=== PATIENT | female | born 1990 | race Two or more races ===

== ENCOUNTER 2025-02-07 00:35 | Emergency (ER) | payer MEDICAID, OTHER ==
[~2025-02-07] VITALS: Ht 154.9 cm; Wt 121.8 kg
--- NOTE | 2025-02-07 00:59 | ED.PDOC ---
CONTROL ELECTRICIAN HPI Comments 34-year-old female who came to ER for abdominal pain. Patient states for the past 4 days she has been having lower abdominal cramping pain, associated with profuse vaginal bleeding with clots. Ibuprofen 800 mg offered no relief of the pain. Persistence of lower abdominal cramping pain and vaginal bleeding prompted patient to come to the ER. Denies any nausea or vomiting. Denies any possibility of . Patient states she had her regular menstrual cycle 2 weeks ago Chief Complaint: Abdominal Pain Time Seen by MD: 00:58 Reviewed Notes: Nurses Notes Allergies: Coded Allergies: No Known Drug Allergy (Verified Allergy, Unknown, 02/07/25) Home Meds Active Scripts Cefdinir (Cefdinir) 300 Mg Cap, 300 MG PO BID for 7 Days, #14 CAP Prov:ALEJANDRO HARRIS MD 02/07/25 Acetaminophen W/ Pamabrom (Midol Caffeine Free 500-25 mg) 1 Tab Tab, 1 TAB PO Q6HP PRN, #60 TAB Prov:ALEJANDRO HARRIS MD 02/07/25 Information Source: Patient Mode of Arrival: Ambulatory Timing: Days Prehospital treatment: None Severity: Moderate Vaginal Discharge: None Bleeding Quality: Clotted Onset Of Mass/Bleeding: Spontaneous Associated Signs and Symptoms: Vaginal Bleeding, Abdominal Pain Past Medical History PAST MEDICAL HISTORY: Denies Surgical History: Denies all surgeries 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 Family History Family History: Reviewed,noncontributory to illness Social History Smoker: Non-Smoker Alcohol: Denies ETOH Use Drugs: Denies Drug Use Lives In: Home Constitutional: denies: chills, diaphoresis, fatigue, fever, malaise, sweats, w eakness, others EENTM: denies: blurred vision, double vision, ear bleeding, ear discharge, ear drainage, ear pain, ear ringing, eye pain, eye redness, hearing loss, mouth pain, mouth swelling, nasal discharge, nose bleeding, nose congestion, nose pain, photophobia, tearing, throat pain, throat swelling, voice changes, others Respiratory: denies: cough, hemoptysis, orthopnea, SOB at rest, shortness of breath, SOB with excertion, stridor, wheezing, others Cardiovascular: denies: chest pain, dizzy spells, diaphoresis, Dyspnea on exertion, edema, irregular heart beat, left arm pain, lightheadedness, palpitations, PND, syncope, others Gastrointestinal: reports: abdominal pain; denies: abdomen distended, blood streaked bowels, constipated, diarrhea, dysphagia, difficulty swallowing, hematemesis, melena, nausea, poor appetite, poor fluid intake, rectal bleeding, rectal pain, vomiting, others Genitourinary: reports: abnormal vagina bleeding; denies: burning, dyspareunia, dysuria, flank pain, frequency, hematuria, incontinence, pain, , vagina discharge, urgency, others Neurological: denies: dizziness, fainting, headache, left sided numbness, left sided weakness, numbness, paresthesia, pre-existing deficit, right sided numbness, right sided weakness, seizure, speech problems, tingling, tremors, weakness, others Musculoskeletal: denies: back pain, gout, joint pain, joint swelling, muscle pain, muscle stiffness, neck pain, others Integumetry: denies: bruises, change in color, change in hair/nails, dryness, laceration, lesions, lumps, rash, wounds, others Allergic/Immunocompromised: denies: Difficulty Healing, Frequent Infections, Hives, Itching, others Hematologic/Lymphatic: denies: anemia, blood clots, easy bleeding, easy bruising, swollen glands, others Endocrine: denies: excessive hunger, excessive sweating, excessive thirst, excessive urination, flushing, intolerance to cold, intolerance to heat, unexplained weight gain, unexplained weight loss, others Psychiatric: denies: anxiety, bipolar disorder, depression, hopeless, panic disorder, schizophrenia, sleepless, suicidal, others Physical Exam General Appearance: No Apparent Distress, Normal HEENT: Normal ENT Inspection, Pharynx Normal, TMs Normal Neck: Full Range of Motion, Non-Tender, Normal, Normal Inspection Respiratory: Chest Non-Tender, Lungs Clear, No Accessory Muscle Use, No Respiratory Distress, Normal Breath Sounds Cardiovascular: No Edema, No JVD, No Murmur, No Gallop, Normal Peripheral Pulses, Regular Rate/Rhythm Breast Exam: Deferred Gastrointestinal: No Organomegaly, Non Tender, No Pulsatile Mass, Normal Bowel Sounds, Soft Genitalia: Deferred Pelvic: Deferred Rectal: Deferred Extremities: No calf tenderness, Normal capillary refill, Normal inspection, Normal range of motion, Non-tender, No pedal edema Musculoskeletal : Apperance: Normal Neurologic: Alert, storm chaser II-XII nml as Tested, No Motor Deficits, Normal Affect, Normal Mood, No Sensory Deficits Cerebellar Function: Normal Reflexes: Normal Skin: Dry, Normal Color, Warm Lymphatic: No Adenopathy Was a procedure done? Was a procedure done?: No Differential Diagnosis (COST ESTIMATING CLERK) Vaginal Bleeding: - Complete, - Incomplete, Blood Loss Anemia, Dysmenorrhea, Ectopic , Menorrhagia, Menometrorrhagia, PID, UTI, Other X-Ray, Labs, Meds, VS Vital Signs Date Time Temp Pulse Resp B/P (MAP) Pulse Ox O2 Delivery O2 Flow Rate FiO2 02/07/25 08:30 98.3 88 17 128/72 (90) 99 98.3 02/07/25 06:07 98.7 78 20 129/66 (87) 98 98.7 02/07/25 03:44 98.0 78 20 126/75 (92) 93 98.0 02/07/25 00:38 98.3 96 16 136/91 97 98.3 Lab Test 02/07/25 03:25 02/07/25 01:01 Range/Units Urine Color Brown H Yellow Urine Clarity Turbid H Clear Urine pH 5.5 5.0-9.0 Urine Specific Mongo 1.020 1.001-1.035 Urine Protein 1+ H Negative Urine Ketones Trace Negative Urine Blood 3+ H Negative /uL Urine Nitrite Negative Negative Urine Bilirubin Negative Negative Urine Urobilinogen Normal Negative mg/dL Urine Leukocyte Esterase 1+ Negative /uL Urine RBC 3788 0 - 4 /hpf Urine Microscopic WBC 33 H 0-5 /HPF Urine Squamous Epithelial Cells Few <5 /hpf Urine Bacteria Few H None Seen /hpf Urine Mucus Few None Seen Urine Glucose Normal Normal mg/dL Urine Test Negative Negative White Blood Count 10.4 4.4-10.8 10^3/uL Red Blood Count 4.46 4.0-5.20 10^6/uL Hemoglobin 13.2 12.2-16.2 g/dL Hematocrit 39.1 36.0-46.0 % Mean Corpuscular Volume 87.6 80.0-100.0 fL Mean Corpuscular Hemoglobin 29.7 28.0-32.0 pg Mean Corpuscular Hemoglobin Concent 33.8 32.0-36.0 g/dL Red Cell Distribution Width 12.9 11.8-14.3 % Platelet Count 301 140-450 10^3/uL Mean Platelet Volume 8.9 6.9-10.8 fL Neutrophils (%) (Auto) 55.7 37.0-80.0 % Lymphocytes (%) (Auto) 37.6 10.0-50.0 % Monocytes (%) (Auto) 4.6 0.0-12.0 % Eosinophils (%) (Auto) 1.6 0.0-7.0 % Basophils (%) (Auto) 0.5 0.0-2.0 % Neutrophils # (Auto) 5.8 1.6-8.6 10 ^3/uL Lymphocytes # (Auto) 3.9 0.4-5.4 10 ^3/uL Monocytes # (Auto) 0.5 0-1.3 10 ^3/uL Eosinophils # (Auto) 0.2 0-0.8 10 ^3/uL Basophils # (Auto) 0.1 0-0.2 10 ^3/uL Nucleated Red Blood Cells 0.2 % Prothrombin Time 10.6 9.3-11.8 sec Prothrombin Time INR 1.00 0.9-1.15 Activated Partial Thromboplast Time 31.5 24.5-34.5 SEC Sodium Level 144 136-145 mmol/L Potassium Level 3.6 3.5-5.1 mmol/L Chloride Level 109 H 98-107 mmol/L Carbon Dioxide Level 23 20-31 mmol/L Anion Gap 12 5-15 Blood Urea Nitrogen < 5 L 9-23 mg/dL Creatinine 0.67 0.550-1.02 mg/dL Glomerular Filtration Rate Calc 118 >90 mL/min BUN/Creatinine Ratio 7.5 L 10.0-20.0 Serum Glucose 86 74-106 mg/dL Calcium Level 9.4 8.7-10.4 mg/dL Total Bilirubin 0.4 0.2-1.0 mg/dL Aspartate Amino Transferase (AST) 19 13-40 U/L Alanine Aminotransferase (ALT) 17 7-40 U/L Alkaline Phosphatase 68 46-116 U/L Total Protein 7.6 5.7-8.2 g/dL Albumin 4.6 3.2-4.8 g/dL [facility] [id number] [facility] [address] Ph: [phone] DIAGNOSTIC IMAGING Diagnostic Imaging Report : [id number] Signed PATIENT: WERO FIELDS ACCT: [id number] UNIT: [id number] : 1990 LOC: ER ROOM / BED: / AGE / SEX: 34 / F ADM STATUS: REG ER SERVICE 1 ORDERING PHYSICIAN: ALEJANDRO HARRIS MD PROCEDURE(s): PELUS - PELVIC REASON: pain / vag bleeding ORDER NUMBER(s): [id number], ACCESSION NUMBER(s): [id number] CLINICAL HISTORY: Pain. Vaginal bleeding. COMPARISON:CT CT AB PEL WO CON-NO ORAL OR IV on DOS: 02/07/25 TECHNIQUE: Transvaginal and transabdominal grayscale sonographic imaging of the uterus and ovaries was performed, assisted by color Doppler technique. Duplex Doppler ultrasound of both ovaries was also performed, with color flow and spectral waveform analysis. FINDINGS: The uterus measures 8.5 x 4.1 x 4.2 cm. There is homogeneous echogenicity. Endometrial thickness measures 0.8 cm, within normal limits. Right ovary measures 3.4 x 3.7 x 2.5 cm. Arterial and venous blood flow demonstrated. Complex, heterogeneous, Lobulated mass in the right ovary with areas of increased echogenicity Left ovary measures 3.0 x 2.7 x 2.1 cm. Arterial and venous blood flow demonstrated. Dominant follicle/simple cyst in the left ovary measures up to 1.4 cm. IMPRESSION: 1. Right ovarian mass is nonspecific, possibly a dermoid or other mass. MRI without and with contrast recommended. 2. Simple cyst in the left ovary. 3. No sonographic evidence of ovarian torsion. ATED BY: EITAN BURKETT DO DICTATED DATE/TIME: 02/07/25729 SIGNED BY: EITAN BURKETT DO SIGNED DATE/TIME: 02/07/25729 CC: [address] [address] Ph: [phone] DIAGNOSTIC IMAGING Diagnostic Imaging Report : [id number] Signed PATIENT: WERO FIELDS ACCT: [id number] UNIT: [id number] : 1990 LOC: ER ROOM / BED: / AGE / SEX: 34 / F ADM STATUS: REG ER SERVICE 0612 ORDERING PHYSICIAN: ALEJANDRO HARRIS MD PROCEDURE(s): PELUS - PELVIC REASON: pain / vag bleeding ORDER NUMBER(s): [id number], ACCESSION NUMBER(s): [id number] CLINICAL HISTORY: Pain. Vaginal bleeding. COMPARISON:CT CT AB PEL WO CON-NO ORAL OR IV on DOS: 02/07/25 TECHNIQUE: Transvaginal and transabdominal grayscale sonographic imaging of the uterus and ovaries was performed, assisted by color Doppler technique. Duplex Doppler ultrasound of both ovaries was also performed, with color flow and spectral waveform analysis. FINDINGS: The uterus measures 8.5 x 4.1 x 4.2 cm. There is homogeneous echogenicity. Endometrial thickness measures 0.8 cm, within normal limits. Right ovary measures 3.4 x 3.7 x 2.5 cm. Arterial and venous blood flow demonstrated. Complex, heterogeneous, Lobulated mass in the right ovary with areas of increased echogenicity Left ovary measures 3.0 x 2.7 x 2.1 cm. Arterial and venous blood flow demonstrated. Dominant follicle/simple cyst in the left ovary measures up to 1.4 cm. IMPRESSION: 1. Right ovarian mass is nonspecific, possibly a dermoid or other mass. MRI without and with contrast recommended. 2. Simple cyst in the left ovary. 3. No sonographic evidence of ovarian torsion. ATED BY: EITAN BURKETT DO DICTATED DATE/TIME: 02/07/25729 SIGNED BY: EITAN BURKETT DO SIGNED DATE/TIME: 02/07/25729 CC: Time of 1ST Reevaluation: 00:56 Reevaluation 1ST: Unchanged Time of 2ND Reevaluation: 16:19 (case discussed with Dr. Kasandra JACOBS, CT scan and US reports and findings. She recommended outpatient follow up) Time of 3RD Reevaluation: 16:22 (Patient was departed erroneously by the staff prior to ultrasound report. We called the patient to have her come back and receive the appropriate discharge instructions. ) Patient Education/Counseling: Diagnosis, Treatment Family Education/Counseling: No Family Present Departure 1 Departure Time of Disposition: 16:21 Impression: Primary Impression: Dysfunctional uterine bleeding Additional Impressions: Lower abdominal pain Ovarian mass Disposition: 01 HOME / SELF CARE / HOMELESS Condition: Stable Additional Instructions: Additional instructions: Please read all instructions provided in this packet carefully. You MUST follow-up with your primary care/family doctor in 1 to 2 days. If you are unable to see your primary care/family doctor, please return to our emergency room for re-assessment and re-evaluation in 1 to 2 days. Return to the emergency room here in our facility or to the nearest ER [facility] if your symptoms change or worsen. CONSULTATIONS: you MUST Follow-up for consultation as soon as possible with: Dr. VITALIY Connell doctor in 1-2 days. Please call for appointment. You MUST call the consultants office yourself to make an appointment. You may need to arrange that through your insurance and/or your primary/family doctor. If you are unable to see the surgery consultant in 1 to 2 days, you must return to our emergency room (or any other ER of your choice) for re-assessment and re- evaluation. Adequate fluid hydration. Although you have been discharged from the Emergency Department, this does not mean that you have a "clean bill of health". No definitive diagnosis for your symptoms has been made today. It is possible that you are in the process of developing a serious illness. This is why you must return to the ED without fail if any new or worsening symptoms develop. Absolute pelvic rest. Below is a copy of your radiological report for follow up: [address] [address] Ph: [phone] DIAGNOSTIC IMAGING Diagnostic Imaging Report : [id number] Signed PATIENT: WERO FIELDS ACCT: [id number] UNIT: [id number] : 1990 LOC: ER ROOM / BED: / AGE / SEX: 34 / F ADM STATUS: REG ER SERVICE 0053 ORDERING PHYSICIAN: ALEJANDRO HARRIS MD PROCEDURE(s): ABPL - CT AB PEL WO CON-NO ORAL OR IV REASON: abd pain ORDER NUMBER(s): [id number], ACCESSION NUMBER(s): [id number] Exam: CT CT AB PEL WO CON-NO ORAL OR IV History: abd pain Comparison Study: None Technique: Multidetector spiral CT of the abdomen and pelvis was performed from lung bases to pubic symphysis. Imaging was performed without intravenous contrast. Coronal and sagittal multiplanar reformats were obtained from the axial data set by the technologist. Radiation Dose : 1. Abdomen/Pelvis: CTDIvol 25.9 mGy, DLP 1662.9 mGy*cm. Findings: Evaluation of vasculature and solid organs is limited due to lack of intravenous contrast use. Lung Bases: Lung bases are clear. Visualized portions of the heart and pericardium are unremarkable. Liver: The liver is normal in size. No focal lesions. Gallbladder and Biliary Tree: The gallbladder is unremarkable. No intrahepatic or extrahepatic biliary ductal dilatation. Spleen: Unremarkable Pancreas: The pancreas is grossly unremarkable. Adrenal Glands: Unremarkable Kidneys: Kidneys are unremarkable without calculi or hydronephrosis. GI tract: The stomach is grossly normal in appearance. No evidence of small bowel wall thickening or abnormal dilatation to suggest bowel obstruction. The colon is unremarkable. The appendix is visualized and is normal. Peritoneum/mesentery/retroperitoneum. No evidence of free intraperitoneal air. No ascites. No evidence of suspicious lymphadenopathy. Abdominal Wall: Unremarkable. Vasculature: The visualized abdominal aorta is normal in size and caliber. Evaluation of abdominal and pelvic vessels is limited due to lack of intravenous contrast. Urinary Bladder: Grossly unremarkable for degree of distention. Pelvic Organs: The uterus and adnexal structures are unremarkable. Musculoskeletal: No aggressive focal bony lesions, acute fractures or dislocation. IMPRESSION: 1. No acute process in the abdomen or pelvis. ATED BY: ETHEL CABRERA MD DICTATED DATE/TIME: 02/07/25700 SIGNED BY: ETHEL CABRERA MD SIGNED DATE/TIME: 02/07/25700 CC: e-Prescriptions Cefdinir (Cefdinir) 300 Mg Cap 300 MG PO BID for 7 Days, #14 CAP Prov: ALEJANDRO HARRIS MD 02/07/25 Acetaminophen W/ Pamabrom (Midol Caffeine Free 500-25 mg) 1 Tab Tab 1 TAB PO Q6HP PRN, #60 TAB Prov: ALEJANDRO HARRIS MD 02/07/25 Discharged With: Self Critical Care Note Critical Care Time?: No Stability Stability form required: No Heart Score Heart Score: Heart Score Response (Comments) Value History N/A 0 EKG N/A 0 Age N/A 0 Risk Factors N/A 0 Troponin N/A 0 Total 0 I personally scribed for ALEJANDRO HARRIS MD ([email or web address]) on 02/07/25 at 00:59. Electronically submitted by Elías Bravo ([facility]). I personally scribed for ALEJANDRO HARRIS MD ([email or web address]) on 02/07/25 at 07:21. Electronically submitted by Palmira Mcwilliams ([facility]). I personally scribed for ALEJANDRO HARRIS MD ([email or web address]) on 02/07/25 at 15:59. Electronically submitted by Palmira Mcwilliams ([facility]). I personally scribed for ALEJANDRO HARRIS MD ([email or web address]) on 02/07/25 at 16:21. Electronically submitted by Palmira Mcwilliams ([facility]). ALEJANDRO HARRIS MD Feb 07, 2025 00:59 GILDARDO ELIAS DO Feb 07, 2025 16:22
[2025-02-07 01:40] LABS: INR 1.0 (0.9-1.15); Partial Thromboplastin Time 31.5 SEC (24.5-34.5); Prothrombin Time 10.6 sec (9.3-11.8)
[2025-02-07 01:42] LABS: Alanine Aminotransferase 17 U/L (7-40); Alkaline Phosphatase 68 U/L (46-116); Anion Gap 12 (5-15); Calcium 9.4 mg/dL (8.7-10.4); Carbon Dioxide 23 mmol/L (20-31); Glucose 86 mg/dL (74-106); Potassium 3.6 mmol/L (3.5-5.1); Sodium 144 mmol/L (136-145); Total Protein 7.6 g/dL (5.7-8.2)
[2025-02-07 01:43] LABS: Albumin 4.6 g/dL (3.2-4.8); Bilirubin, Total 0.4 mg/dL (0.2-1.0)
[2025-02-07 01:48] LABS: BUN/Creatinine Ratio 7.5 (10.0-20.0); Blood Urea Nitrogen < 5 mg/dL (9-23); Chloride 109 mmol/L (98-107)
[2025-02-07 01:52] LABS: Hematocrit 39.1 % (36.0-46.0); Hemoglobin 13.2 g/dL (12.2-16.2); Mean Corpuscular Hemoglobin 29.7 pg (28.0-32.0); Mean Corpuscular Volume 87.6 fL (80.0-100.0); Nucleated Red Blood Cells % 0.2 %
[2025-02-07 04:46] LABS: Urine Protein, UAD 1+ (Negative)
[2025-02-07] MEDS ORDERED: [UNRECOGNIZED DRUG - CODE] PO (05:51)
[2025-02-07] MEDS ORDERED: CEFD300C2 PO (06:06)
--- NOTE | 2025-02-07 07:03 | DVH ---
Exam: CT CT AB PEL WO CON-NO ORAL OR IV History: abd pain Comparison Study: None Technique: Multidetector spiral CT of the abdomen and pelvis was performed from lung bases to pubic s ymphysis. Imaging was performed without intravenous contrast. Coronal and sagittal multiplanar reform ats were obtained from the axial data set by the technologist. Radiation Dose : 1. Abdomen/Pelvis: CTDIvol 25.9 mGy, DLP 1662.9 mGy*cm. Findings: Evaluation of vasculature and solid organs is limited due to lack of intravenous contrast use. Lung Bases: Lung bases are clear. Visualized portions of the heart and pericardium are unremarkable. Liver: The liver is normal in size. No focal lesions. Gallbladder and Biliary Tree: The gallbladder is unremarkable. No intrahepatic or extrahepatic bilia ry ductal dilatation. Spleen: Unremarkable Pancreas: The pancreas is grossly unremarkable. Adrenal Glands: Unremarkable Kidneys: Kidneys are unremarkable without calculi or hydronephrosis. GI tract: The stomach is grossly normal in appearance. No evidence of small bowel wall thickening or abnormal dilatation to suggest bowel obstruction. The colon is unremarkable. The appendix is visualiz ed and is normal. Peritoneum/mesentery/retroperitoneum. No evidence of free intraperitoneal air. No ascites. No evidenc e of suspicious lymphadenopathy. Abdominal Wall: Unremarkable. Vasculature: The visualized abdominal aorta is normal in size and caliber. Evaluation of abdominal a nd pelvic vessels is limited due to lack of intravenous contrast. Urinary Bladder: Grossly unremarkable for degree of distention. Pelvic Organs: The uterus and adnexal structures are unremarkable. Musculoskeletal: No aggressive focal bony lesions, acute fractures or dislocation. IMPRESSION: 1. No acute process in the abdomen or pelvis.
--- NOTE | 2025-02-07 07:33 | DVH ---
CLINICAL HISTORY: Pain. Vaginal bleeding. COMPARISON:CT CT AB PEL WO CON-NO ORAL OR IV on DOS: 02/07/25 TECHNIQUE: Transvaginal and transabdominal grayscale sonographic imaging of the uterus and ovaries wa s performed, assisted by color Doppler technique. Duplex Doppler ultrasound of both ovaries was also performed, with color flow and spectral waveform analysis. FINDINGS: The uterus measures 8.5 x 4.1 x 4.2 cm. There is homogeneous echogenicity. Endometrial thic kness measures 0.8 cm, within normal limits. Right ovary measures 3.4 x 3.7 x 2.5 cm. Arterial and venous blood flow demonstrated. Complex, hetero geneous, Lobulated mass in the right ovary with areas of increased echogenicity Left ovary measures 3.0 x 2.7 x 2.1 cm. Arterial and venous blood flow demonstrated. Dominant follicl e/simple cyst in the left ovary measures up to 1.4 cm. IMPRESSION: 1. Right ovarian mass is nonspecific, possibly a dermoid or other mass. MRI without and with contrast recommended. 2. Simple cyst in the left ovary. 3. No sonographic evidence of ovarian torsion.
[2025-02-07 08:30] VITALS: BP 128/72; PULSE 88; RESP 17; TEMP 98.3; O2SAT 99
== END 2025-02-07 10:30 | disposition home or self-care (01) ==
LOC: ER 00:35
DX: N93.8 Other specified abnormal uterine and vaginal bleeding (principal); N83.292 Other ovarian cyst, left side
CPT/HCPCS: 36415; 74176; 76830; 76856; 80053; 81001; 81025; 85025; 85610; 85730